=== PATIENT | male | born 2000 | race Caucasian/White ===

== ENCOUNTER 2018-04-20 20:16 | Emergency (ER) | payer OTHER ==
[~2018-04-20] VITALS: Ht 170.2 cm; Wt 49.8 kg
[2018-04-20 20:58] LABS: BASOPHILS # (AUTO) 0.02 x10^3/uL (0-0.3); BASOPHILS % (AUTO) 0 % (0-1); EOSINOPHILS % (AUTO) 0 % (1-7); LYMPHOCYTES # (AUTO) 1.77 x10^3/uL (1-6.1); LYMPHOCYTES % (AUTO) 14 % (22-44); MD NO; MEAN CORPUSCULAR HEMOGLOBIN 30.8 pg (27.5-34.5); MEAN CORPUSCULAR HGB CONC 34.4 g/dL (33.2-36.2); MEAN CORPUSCULAR VOLUME 89.5 fL (81-97); MEAN PLATELET VOLUME 9.5 fL (7.4-10.4); MONOCYTES # (AUTO) 0.84 x10^3/uL (0-1.4); MONOCYTES % (AUTO) 7 % (2-9); NEUTROPHILS # (AUTO) 10.03 x10^3/uL (1.8-8.0); NEUTROPHILS % (AUTO) 79 % (42-75); PLATELET COUNT 291 x10^3/uL (130-400); RED BLOOD COUNT 5.54 x10^6/uL (4.38-5.82); RED CELL DISTRIBUTION WIDTH 12.4 % (9.4-14.8)
[2018-04-20] MEDS ORDERED: METOCLOPRAMIDE 5 MG/ML, 2ML IVPush ONE (21:00)
[2018-04-20] MEDS ORDERED: SODIUM CHLORIDE 0.9% 1,000ML IVBOLUS ONE (21:00)
[2018-04-20] MEDS ORDERED: DIPHENHYDRAMINE 50 MG/ML, 1ML IVPush ONE (21:00)
[2018-04-20] MEDS ORDERED: SODIUM CHLORIDE FLUSH 10ML SYR IVF ONE (21:00)
[2018-04-20] MEDS ORDERED: METOCLOPRAMIDE 5 MG/ML, 2ML ONE (21:01)
[2018-04-20] MEDS ORDERED: DIPHENHYDRAMINE 50 MG/ML, 1ML ONE (21:01)
[2018-04-20 21:07] LABS: ALANINE AMINOTRANSFERASE 18 U/L (12-78); ALBUMIN 5.2 g/dL (3.4-5.0); ANION GAP 12 mmol/L (5-15); CALCIUM 9.9 mg/dL (8.5-10.1); CHLORIDE 103 mmol/L (98-107); CREATININE 1.04 mg/dL (0.7-1.3)
[2018-04-20 21:09] LABS: ALKALINE PHOSPHATASE 94 U/L (45-117); BILIRUBIN,TOTAL 2.2 mg/dL (0.2-1.0)
[2018-04-20 21:51] VITALS: BP 119/74
--- NOTE | 2018-04-20 21:58 | NUR ---
TASK RN: Patient/Caregiver given discharge instructions and they have confirmed that they understand the instructions. Patient ambulatory with steady gait.
== END 2018-04-20 21:59 | disposition home or self-care (01) ==
LOC: ED 21:53
DX: K29.00 Acute gastritis without bleeding (principal); K21.9 Gastro-esophageal reflux disease without esophagitis
CPT/HCPCS: 36415; 80053; 83690; 85025; 96361; 96374; 96375; 99283; J1200; J2765; J7030

== ENCOUNTER 2018-04-22 17:19 | Emergency (ER) | payer OTHER ==
[~2018-04-22] VITALS: Ht 170.2 cm; Wt 49.0 kg
[2018-04-22] MEDS ORDERED: SODIUM CHLORIDE FLUSH 10ML SYR IVF ONE ×2 (18:00→18:30)
[2018-04-22 18:02] LABS: BASOPHILS # (AUTO) 0.04 x10^3/uL (0-0.3); BASOPHILS % (AUTO) 0 % (0-1); EOSINOPHILS # (AUTO) 0.16 x10^3/uL (0-0.8); EOSINOPHILS % (AUTO) 1 % (1-7); LYMPHOCYTES # (AUTO) 1.88 x10^3/uL (1-6.1); LYMPHOCYTES % (AUTO) 15 % (22-44); MD NO; MEAN CORPUSCULAR HEMOGLOBIN 30.9 pg (27.5-34.5); MEAN CORPUSCULAR HGB CONC 34.7 g/dL (33.2-36.2); MEAN CORPUSCULAR VOLUME 89.1 fL (81-97); MEAN PLATELET VOLUME 9.3 fL (7.4-10.4); MONOCYTES # (AUTO) 0.94 x10^3/uL (0-1.4); MONOCYTES % (AUTO) 8 % (2-9); NEUTROPHILS # (AUTO) 9.43 x10^3/uL (1.8-8.0); NEUTROPHILS % (AUTO) 76 % (42-75); PLATELET COUNT 317 x10^3/uL (130-400); RED BLOOD COUNT 5.52 x10^6/uL (4.38-5.82); RED CELL DISTRIBUTION WIDTH 12.5 % (9.4-14.8)
[2018-04-22 18:11] LABS: CHLORIDE 96 mmol/L (98-107)
[2018-04-22 18:20] LABS: ALANINE AMINOTRANSFERASE 17 U/L (12-78); ALBUMIN 5.1 g/dL (3.4-5.0); ALKALINE PHOSPHATASE 90 U/L (45-117); ANION GAP 10 mmol/L (5-15); BILIRUBIN,TOTAL 3.8 mg/dL (0.2-1.0); CALCIUM 9.7 mg/dL (8.5-10.1); CREATININE 1.06 mg/dL (0.7-1.3)
[2018-04-22] MEDS ORDERED: ONDANSETRON 2MG/ML, 2ML ONE ×2 (18:28→21:03)
[2018-04-22] MEDS ORDERED: ONDANSETRON 2MG/ML, 2ML IVPush ONE ×2 (18:30→21:00)
[2018-04-22 18:36] LABS: MICROSCOPIC NOT IND
[2018-04-22 18:43] LABS: CULTURE INDICATED? NO
--- NOTE | 2018-04-22 18:54 | NUR ---
RECIEVED REPORT FROM BALJEET HAWTHORNE.
[2018-04-22 19:12] VITALS: BP 131/78
[2018-04-22] MEDS ORDERED: POTASSIUM CHLORIDE 20 MEQ TAB.ER.PRT PO ONE (19:30)
[2018-04-22] MEDS ORDERED: POTASSIUM CHLORIDE 20 MEQ TAB.ER.PRT ONE (19:43)
[2018-04-22] MEDS ORDERED: OMNIPAQUE 350 MG/ML, 100ML BOTTLE ONE (19:48)
--- NOTE | 2018-04-22 19:51 | NUR ---
PT REFUSED [facility] PILLS AT THIS TIME. PT DOES NOT TAKE PILLS WELL. PT IS ALSO UNSURE IF HE WILL BE ABLE TO HOLD THEM DOWN.
--- NOTE | 2018-04-22 21:18 | NUR ---
Patient/Caregiver given discharge instructions and they have confirmed that they understand the instructions. Patient ambulatory with steady gait.
== END 2018-04-22 21:25 | disposition home or self-care (01) ==
LOC: ED 21:18
DX: R10.13 Epigastric pain (principal); R11.2 Nausea with vomiting, unspecified
CPT/HCPCS: 36415; 74177; 80053; 81003; 83690; 83735; 85025; 96374; 96376; 99284; J2405; Q9967